=== PATIENT | female | born 1990 | race African-American/Black ===

== ENCOUNTER 2023-06-09 12:56 | Emergency (ER) | payer OTHER, SELFPAY ==
--- NOTE | ~2023-06-09 | CT_ITS ---
EXAMINATION: CT SOFT TISSUE NECK WITH CONTRAST CLINICAL INFORMATION: Left-sided submandibular swelling. COMPARISON: None. TECHNIQUE: Following the administration of 60 mL of Omnipaque 350 intravenous contrast, helical imaging was performed in the axial plane with generation of coronal and sagittal reformatted images. This CT examination was performed using dose optimization techniques as appropriate, variously including the following: *Automated exposure control. *Adjustment of mA and/or kV according to patient size (this includes techniques or standardized protocols for targeted exams where dose is matched to indication/reason for exam; i.e. extremities or head). *Use of iterative reconstruction technique. DLP: 639 mGy-cm. FINDINGS: There is a carious left mandibular second molar with periapical lucency and dehiscence of the buccal cortex of the left maxillary alveolus. Adjacent soft tissue swelling of the inferior gingivobuccal soft tissues containing a rim-enhancing hypodense collection, compatible with phlegmon/developing abscess measuring 2.7 x 1.3 x 2.4 cm. Mild stranding of the submental and left submandibular subcutaneous fat which may reflect cellulitis. There are also several maxillary dental caries and periapical lucencies. Nasopharynx/skull base: The fat planes of the skull base and soft tissues of the nasopharynx are unremarkable. The paranasal sinuses and mastoid air cells are well aerated. The temporomandibular joints are normal. Suprahyoid neck: The oropharynx, oral cavity, and bilateral salivary gland tissues are unremarkable. Infrahyoid neck: The hypopharynx and larynx are unremarkable. No aerodigestive tract mass. Thyroid: The thyroid gland is normal. Lymph nodes: There is no cervical chain lymphadenopathy. Lung apices: The partially visualized lung apices are clear. Vascular structures: No hemodynamically significant stenosis, dissection, or occlusion. Osseous structures: The osseous structures are intact without suspicious focal lesion. Other: The imaged portions of the brain parenchyma are unremarkable. CT/CT soft tissue neck w IV con IMPRESSION: There is evidence of odontogenic infection with dehiscence of the buccal cortex of the left mandible associated with a carious second molar. Soft tissue swelling of the adjacent gingivobuccal soft tissues containing a peripherally enhancing hypodense collection measuring up to 2.7 cm, compatible with phlegmon/developing abscess.
[2023-06-09 13:32] VITALS: BP 134/82; PULSE 104; RESP 20; TEMP 37.2; O2SAT 99; BMI 24.2
--- NOTE | 2023-06-09 13:32 | ED_ITS ---
HPI - General Adult General Chief complaint: Dental/Oral Stated complaint: Side of face hurts Time Seen by Provider: 06/09/23 13:51 Related Data Allergies Allergy/AdvReac Type Severity Reaction Status Date / Time amoxicillin Allergy Unknown Verified 06/09/23 13:32 [facility] Social History Social History Alcohol intake: never Smoked in Last 30 Days: No Use of substances other than those prescribed or required for medical reasons: Yes Substance Use Type: Marijuana Substance Use Frequency: Chronic Longstanding Advance Directives: No Advance Directives Information Provided: No Physical Exam ED Vital Signs: Vital Signs - 24 hr 06/09/23 13:32 06/09/23 14:02 06/09/23 16:00 Temperature 99.0 F Pulse Rate 104 H 85 76 Respiratory Rate 20 18 Blood Pressure 134/82 124/89 134/88 Pulse Oximetry 99 98 100 Oxygen Delivery Method Room Air Room Air Room Air 06/09/23 19:13 Temperature 98.3 F Pulse Rate 82 Respiratory Rate 18 Blood Pressure 123/77 Pulse Oximetry 99 Oxygen Delivery Method Room Air BMI result Body Mass Index 24.2 Course Course Course Narrative: This is an RME: Additional HPI, ROS, PE not included below will be deferred to primary provider. Patient is a 32-year-old female presenting to the emergency department with complaint of left sided facial swelling for 2 days, this morning she had difficulty swallowing. States pain is so severe it is making her nauseated and causing her to vomit. States is September she had similar symptoms and she was told she had a blocked salivary gland. Also reports pain radiating to left chest and breast. Went to [facility] urgent care this morning and states she was told to come here. Took morphine this morning which was prescribed to her in September. Patient with visible swelling to left side of face/jaw, unable to fully assess in triage related to pain level. Denies any pain inside her mouth. No difficulty breathing, patient is managing secretions. Medications Administered Discontinued Medications Generic Name Dose Route Start Last Admin Trade Name Freq PRN Reason Stop Dose Admin Dexamethasone Sodium Phosphate 10 mg 06/09/23 14:01 06/09/23 14:13 Dexamethasone Sod Phosphate 10 Mg/Ml Vial IVPUSH 06/09/23 14:02 10 mg ONCE ONE Administration Hydromorphone HCl 0.5 mg 06/09/23 16:32 06/09/23 16:38 Hydromorphone Hcl 0.5 Mg/0.5 Ml Syringe IVPUSH 06/09/23 16:33 0.5 mg ONCE ONE Administration Protocol Sodium Chloride 1,000 mls @ 999 mls/hr 06/09/23 14:00 06/09/23 15:48 Ns IV 06/09/23 15:00 Infused .Q1H1M KERON Infusion Sodium Chloride 1,000 mls @ 999 mls/hr 06/09/23 14:00 06/09/23 15:49 Ns IV 06/09/23 15:00 Infused .Q1H1M KERON Infusion Clindamycin Phosphate 600 mg in 50 mls @ 100 mls/hr 06/09/23 14:01 06/09/23 1 5:49 Cleocin IV 06/09/23 14:30 Infused ONCE ONE Infusion Iohexol 100 ml 06/09/23 15:59 06/09/23 16:00 Iohexol 350 Mg/Ml 100 Ml Infus..Btl IV 06/09/23 16:00 60 ml ONCE ONE Administration Lorazepam 1 mg 06/09/23 18:50 06/09/23 19:01 Lorazepam 2 Mg/Ml Vial IVPUSH 06/09/23 18:51 1 mg ONCE ONE Administration Medical Decision Making Lab Data 06/09/23 14:00 06/09/23 14:00 Labs: Lab Results 06/09/23 06/09/23 06/09/23 Range/Units 14:00 14:00 14:00 WBC 7.4 (4.8-10.8) X10*3/uL RBC 4.17 L (4.20-5.50) X10*6/uL Hgb 12.4 (12.0-16.0) g/dl Hct 38.1 (37.0-47.0) % MCV 91.4 (80.0-98.0) fL MCH 29.7 (27.0-33.0) pg MCHC 32.5 (31.0-35.0) g/dl RDW 12.9 (11.0-16.0) % Plt Count 155 L (160-400) X10*3/uL MPV 9.9 (9.4-12.3) fL Immature Gran % (Auto) 0.1 (0.0-0.4) % Neut % (Auto) 66.2 (45-73) % Lymph % (Auto) 25.6 (20-40) % King % (Auto) 7.3 (2-11) % Eos % (Auto) 0.5 (0-4) % Baso % (Auto) 0.3 (0-2) % Lymph # (Auto) 1.9 (1.2-4.9) X10*3/uL [place] # (Auto) 0.5 (0.1-1.2) X10*3/uL Eos # (Auto) 0.0 (0.0-0.4) X10*3/uL Baso # (Auto) 0.0 (0.0-0.2) X10*3/uL Abs Immat Gran (auto) 0.01 (0.00-0.03) X10*3/uL Absolute Neuts (auto) 4.9 (2.0-8.3) x10*3/uL Absolute Nucleated RBC 0.000 (0.0-0.012) X10*3/uL Nucleated RBC % (auto) 0.0 (0.0-0.2) /100WBC Sodium 139 (135-145) mmol/L Potassium 3.9 (3.3-5.1) mmol/L Chloride 107 (96-108) mmol/L Carbon Dioxide 23 (22-29) mmol/L Anion Gap 13 (12-20) BUN 7 L (9-16) mg/dL Creatinine 0.75 (0.5-1.4) mg/dL Estim Creat Clear Calc 98.9 Estimated GFR > 60 Random Glucose 77 (60-115) mg/dL Lactic Acid (0.5-2.0) mmol/L Calcium 9.9 (8.4-10.2) mg/dL Total Bilirubin 0.5 (0.0-1.0) mg/dL AST 20 (5-31) U/L ALT 23 (0-31) U/L Alkaline Phosphatase 64 (39-117) U/L Troponin I High Sens < 2.7 (<3.5-17.0) ng/L Total Protein 7.7 (6.5-8.0) g/dL Albumin 4.3 (3.5-5.0) g/dL Beta HCG, Quant mIU/mL 06/09/23 06/09/23 Range/Units 14:00 14:00 WBC (4.8-10.8) X10*3/uL RBC (4.20-5.50) X10*6/uL Hgb (12.0-16.0) g/dl Hct (37.0-47.0) % MCV (80.0-98.0) fL MCH (27.0-33.0) pg MCHC (31.0-35.0) g/dl RDW (11.0-16.0) % Plt Count (160-400) X10*3/uL MPV (9.4-12.3) fL Immature Gran % (Auto) (0.0-0.4) % Neut % (Auto) (45-73) % Lymph % (Auto) (20-40) % King % (Auto) (2-11) % Eos % (Auto) (0-4) % Baso % (Auto) (0-2) % Lymph # (Auto) (1.2-4.9) X10*3/uL King # (Auto) (0.1-1.2) X10*3/uL Eos # (Auto) (0.0-0.4) X10*3/uL Baso # (Auto) (0.0-0.2) X10*3/uL Abs Immat Gran (auto) (0.00-0.03) X10*3/uL Absolute Neuts (auto) (2.0-8.3) x10*3/uL Absolute Nucleated RBC (0.0-0.012) X10*3/uL Nucleated RBC % (auto) (0.0-0.2) /100WBC Sodium (135-145) mmol/L Potassium (3.3-5.1) mmol/L Chloride (96-108) mmol/L Carbon Dioxide (22-29) mmol/L Anion Gap (12-20) BUN (9-16) mg/dL Creatinine (0.5-1.4) mg/dL Estim Creat Clear Calc Estimated GFR Random Glucose (60-115) mg/dL Lactic Acid 1.0 (0.5-2.0) mmol/L Calcium (8.4-10.2) mg/dL Total Bilirubin (0.0-1.0) mg/dL AST (5-31) U/L ALT (0-31) U/L Alkaline Phosphatase (39-117) U/L Troponin I High Sens (<3.5-17.0) ng/L Total Protein (6.5-8.0) g/dL Albumin (3.5-5.0) g/dL Beta HCG, Quant < 2 mIU/mL Discharge Plan Discharge Clinical Impression: Dental abscess Patient Disposition: [facility] Transfer Details: Transferred to [facility]
--- NOTE | 2023-06-09 13:35 | ECG_ITS ---
Test Reason : chest pressure Blood Pressure : / mmHG Vent. Rate : 101 BPM Atrial Rate : 101 BPM P-R Int : 146 ms QRS Dur : 082 ms QT Int : 318 ms P-R-T Axes : 072 074 057 degrees QTc Int : 412 ms Sinus tachycardia Otherwise normal ECG No previous ECGs available Referred By: Amanda Triana Electronically Signed By:LEONOR STANTON MD
[2023-06-09 14:02] VITALS: BP 124/89; PULSE 85; RESP 18; O2SAT 98
--- NOTE | 2023-06-09 14:05 | ED_ITS ---
HPI - Dental/Oral General Chief complaint: Dental/Oral Stated complaint: Side of face hurts Time Seen by Provider: 06/09/23 13:51 History of Present Illness HPI Narrative: Patient is a 32-year-old female presents today with having left facial pain swelling. 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 Presented with similar pain. Patient denies any pain on chewing. There is no fever no chills. The swelling getting worse over last 2 days. No difficulty swallowing. Voices but the same. No difficulty breathing. Patient is from home. Related Data Allergies Allergy/AdvReac Type Severity Reaction Status Date / Time amoxicillin Allergy Unknown Verified 06/09/23 13:32 Review of Systems Review of Systems: Positive swelling to the left lower jaw Yes all other systems are reviewed and are negative [facility] Past Medical History Attestation statement: The following information was validated with the patient. Social History Social History Alcohol intake: never Smoked in Last 30 Days: No Use of substances other than those prescribed or required for medical reasons: Yes Substance Use Type: Marijuana Substance Use Frequency: Chronic Longstanding Advance Directives: No Advance Directives Information Provided: No Physical Exam Vital Signs: Vital Signs: Last Vital Signs Temp 99.0 F 06/09/23 13:32 Pulse 76 06/09/23 16:00 Resp 18 06/09/23 14:02 BP 134/88 06/09/23 16:00 Pulse Ox 100 06/09/23 16:00 O2 Del Method Room Air 06/09/23 16:00 BMI result Body Mass Index 24.2 Appearance: Alert. Oriented X3. No acute distress. Eyes: Pupils equal, round and reactive to light. ENT: Pharynx normal. Positive swelling to the left lower jaw area. There is no tenderness of palpation on the floor the mouth. There is no tenderness on palpation of the teeth. There is no gross abscess palpable. There is clear swelling over the cheeks on the left side near the mandible. Posterior pharynx is normal. The tonsils are normal in size uvula is midline Neck: Normal inspection. Neck supple. No lymph nodes noted. No crepitus CVS: Normal heart rate and rhythm. Pulses normal. Normal S1 and S2 Respiratory: No respiratory distress. Breath sounds normal. No Wheezing. No rales Abdomen: Soft and nontender. No rigidity. No distention. good BS x4 Skin: Skin warm and dry. Normal skin color. Normal skin turgor. Extremities: No lower extremity edema. Neurovascular intact to all extremities. No Lacerations. No Rash Neuro: Oriented X 3. No motor deficit. No sensory deficit. Moving all extermities. No slurred speech Medications Administered Discontinued Medications Generic Name Dose Route Start Last Admin Trade Name Freq PRN Reason Stop Dose Admin Dexamethasone Sodium Phosphate 10 mg 06/09/23 14:01 06/09/23 14:13 Dexamethasone Sod Phosphate 10 Mg/Ml Vial IVPUSH 06/09/23 14:02 10 mg ONCE ONE Administration Hydromorphone HCl 0.5 mg 06/09/23 16:32 06/09/23 16:38 Hydromorphone Hcl 0.5 Mg/0.5 Ml Syringe IVPUSH 06/09/23 16:33 0.5 mg ONCE ONE Administration Protocol Sodium Chloride 1,000 mls @ 999 mls/hr 06/09/23 14:00 06/09/23 15:48 Ns IV 06/09/23 15:00 Infused .Q1H1M KERON Infusion Sodium Chloride 1,000 mls @ 999 mls/hr 06/09/23 14:00 06/09/23 15:49 Ns IV 06/09/23 15:00 Infused .Q1H1M KERON Infusion Clindamycin Phosphate 600 mg in 50 mls @ 100 mls/hr 06/09/23 14:01 06/09/23 15:49 Cleocin IV 06/09/23 14:30 Infused ONCE ONE Infusion Iohexol 100 ml 06/09/23 15:59 06/09/23 16:00 Iohexol 350 Mg/Ml 100 Ml Infus..Btl IV 06/09/23 16:00 60 ml ONCE ONE Administration Medical Decision Making Medical Decision Making MDM Narrative: 32 years old presents today with left-sided facial swelling. CT scan positive for a large dental abscess approximately 3 cm in size causing facial swelling. There is no evidence for look with angina. Posterior pharynx appears to be normal. Patient has no difficulty breathing. No difficulty with voice. No difficulty with swallowing. Because the extensive nature of the swelling. Lack of follow-up. Patient's case contacted with [facility] for hull sfer. They do not have the necessary capacity. Patient's case also discussed with you mass, no capacity to take care patient. Patient's case discussed with [facility]. Will transfer patient to [place] ED for OM after possible drainage. Risk and benefits explained to patient for the transfer. Patient accepts. Differential Diagnosis Differential Diagnoses: The differential diagnosis associated with the presentation includes Dental abscess, [place] angina, salivary gland infection Consult Healthcare Provider Management of the patient was discussed with: [facility], Lab Data MDM Lab Attestation statement: I reviewed the patient's lab results. 06/09/23 14:00 06/09/23 14:00 Labs: Lab Results 06/09/23 06/09/23 06/09/23 Range/Units 14:00 14:00 14:00 WBC 7.4 (4.8-10.8) X10*3/uL RBC 4.17 L (4.20-5.50) X10*6/uL Hgb 12.4 (12.0-16.0) g/dl Hct 38.1 (37.0-47.0) % MCV 91.4 (80.0-98.0) fL MCH 29.7 (27.0-33.0) pg MCHC 32.5 (31.0-35.0) g/dl RDW 12.9 (11.0-16.0) % Plt Count 155 L (160-400) X10*3/uL MPV 9.9 (9.4-12.3) fL Immature Gran % (Auto) 0.1 (0.0-0.4) % Neut % (Auto) 66.2 (45-73) % Lymph % (Auto) 25.6 (20-40) % [place] % (Auto) 7.3 (2-11) % Eos % (Auto) 0.5 (0-4) % Baso % (Auto) 0.3 (0-2) % Lymph # (Auto) 1.9 (1.2-4.9) X10*3/uL [place] # (Auto) 0.5 (0.1-1.2) X10*3/uL Eos # (Auto) 0.0 (0.0-0.4) X10*3/uL Baso # (Auto) 0.0 (0.0-0.2) X10*3/uL Abs Immat Gran (auto) 0.01 (0.00-0.03) X10*3/uL Absolute Neuts (auto) 4.9 (2.0-8.3) x10*3/uL Absolute Nucleated RBC 0.000 (0.0-0.012) X10*3/uL Nucleated RBC % (auto) 0.0 (0.0-0.2) /100WBC Sodium 139 (135-145) mmol/L Potassium 3.9 (3.3-5.1) mmol/L Chloride 107 (96-108) mmol/L Carbon Dioxide 23 (22-29) mmol/L Anion Gap 13 (12-20) BUN 7 L (9-16) mg/dL Creatinine 0.75 (0.5-1.4) mg/dL Estim Creat Clear Calc 98.9 Estimated GFR > 60 Random Glucose 77 (60-115) mg/dL Lactic Acid (0.5-2.0) mmol/L Calcium 9.9 (8.4-10.2) mg/dL Total Bilirubin 0.5 (0.0-1.0) mg/dL AST 20 (5-31) U/L ALT 23 (0-31) U/L Alkaline Phosphatase 64 (39-117) U/L Troponin I High Sens < 2.7 (<3.5-17.0) ng/L Total Protein 7.7 (6.5-8.0) g/dL Albumin 4.3 (3.5-5.0) g/dL Beta HCG, Quant mIU/mL 06/09/23 06/09/23 Range/Units 14:00 14:00 WBC (4.8-10.8) X10*3/uL RBC (4.20-5.50) X10*6/uL Hgb (12.0-16.0) g/dl Hct (37.0-47.0) % MCV (80.0-98.0) fL MCH (27.0-33.0) pg MCHC (31.0-35.0) g/dl RDW (11.0-16.0) % Plt Count (160-400) X10*3/uL MPV (9.4-12.3) fL Immature Gran % (Auto) (0.0-0.4) % Neut % (Auto) (45-73) % Lymph % (Auto) (20-40) % [place] % (Auto) (2-11) % Eos % (Auto) (0-4) % Baso % (Auto) (0-2) % Lymph # (Auto) (1.2-4.9) X10*3/uL [place] # (Auto) (0.1-1.2) X10*3/uL Eos # (Auto) (0.0-0.4) X10*3/uL Baso # (Auto) (0.0-0.2) X10*3/uL Abs Immat Gran (auto) (0.00-0.03) X10*3/uL Absolute Neuts (auto) (2.0-8.3) x10*3/uL Absolute Nucleated RBC (0.0-0.012) X10*3/uL Nucleated RBC % (auto) (0.0-0.2) /100WBC Sodium (135-145) mmol/L Potassium (3.3-5.1) mmol/L Chloride (96-108) mmol/L Carbon Dioxide (22-29) mmol/L Anion Gap (12-20) BUN (9-16) mg/dL Creatinine (0.5-1.4) mg/dL Estim Creat Clear Calc Estimated GFR Random Glucose (60-115) mg/dL Lactic Acid 1.0 (0.5-2.0) mmol/L Calcium (8.4-10.2) mg/dL Total Bilirubin (0.0-1.0) mg/dL AST (5-31) U/L ALT (0-31) U/L Alkaline Phosphatase (39-117) U/L Troponin I High Sens (<3.5-17.0) ng/L Total Protein (6.5-8.0) g/dL Albumin (3.5-5.0) g/dL Beta HCG, Quant < 2 mIU/mL Radiology Impression Discussion of test interpretation with radiology: I have reviewed the radiologist's reading. Discharge Plan Discharge Clinical Impression: Dental abscess Patient Disposition: [facility] Transfer Details: Transferred to [facility]
[2023-06-09 14:06] LABS: MANUAL DIFF FLAG NO
[2023-06-09 14:11] LABS: Basophils Percent Auto 0.3 % (0-2); Eosinophils Percent Auto 0.5 % (0-4); Hematocrit 38.1 % (37.0-47.0); Hemoglobin 12.4 g/dl (12.0-16.0); Imm Gran Abs Auto 0.01 X10*3/uL (0.00-0.03); Imm Gran Pct Auto 0.1 % (0.0-0.4); Lymphocytes Absolute Auto 1.9 X10*3/uL (1.2-4.9); Lymphocytes Percent Auto 25.6 % (20-40); Mean Corpuscular HGB Conc 32.5 g/dl (31.0-35.0); Mean Corpuscular Hemoglobin 29.7 pg (27.0-33.0); Mean Corpuscular Volume 91.4 fL (80.0-98.0); Mean Platelet Volume 9.9 fL (9.4-12.3); Monocytes Absolute Auto 0.5 X10*3/uL (0.1-1.2); Monocytes Percent Auto 7.3 % (2-11); Neutrophils Absolute Auto 4.9 x10*3/uL (2.0-8.3); Neutrophils Percent Auto 66.2 % (45-73); Platelet Count 155 X10*3/uL (160-400); Red Blood Count 4.17 X10*6/uL (4.20-5.50); Red Cell Distribution Width 12.9 % (11.0-16.0); White Blood Count 7.4 X10*3/uL (4.8-10.8)
[2023-06-09] MEDS: dexAMETHasone sod phosphate 10 MG/ML VIAL IVPUSH (14:13)
[2023-06-09] MEDS: 0.9 % Sodium Chloride 1,000 ML 999 ML IV ×2 (14:15)
[2023-06-09] MEDS: Clindamycin Phosphate/D5W 600 MG/50 ML PIGGYBACK 100 MG IV (14:20)
--- NOTE | 2023-06-09 14:23 | PC.NURSE ---
medication administered per provider order.
[2023-06-09 14:25] LABS: Alanine Aminotransferase 23 U/L (0-31); Albumin Level 4.3 g/dL (3.5-5.0); Alkaline Phosphatase 64 U/L (39-117); Anion Gap 13 (12-20); Aspartate Amino Transferase 20 U/L (5-31); Bilirubin Total 0.5 mg/dL (0.0-1.0); Blood Urea Nitrogen 7 mg/dL (9-16); Calcium 9.9 mg/dL (8.4-10.2); Carbon Dioxide 23 mmol/L (22-29); Chloride 107 mmol/L (96-108); Creatinine Clr Calc Pharmacy 98.9; Estimated Glomerular Filt Rate > 60; Glucose Random 77 mg/dL (60-115); Potassium 3.9 mmol/L (3.3-5.1); Sodium 139 mmol/L (135-145); Total Protein 7.7 g/dL (6.5-8.0)
[2023-06-09 14:37] LABS: HCG Quantitative < 2 mIU/mL; Troponin-I High Sensitivity < 2.7 ng/L (<3.5-17.0)
--- NOTE | 2023-06-09 15:37 | MHC.EDTECH ---
Brought patient ice pack and gave a box of tissue.
--- NOTE | 2023-06-09 15:46 | PC.NURSE ---
pt sent to CT, prior to leaving for CT, pt stated that she has a 9/10 pain level and that the pain is radiating towards her ears and the pain gets worse with movement
[2023-06-09 16:00] VITALS: BP 134/88; PULSE 76; O2SAT 100
[2023-06-09] MEDS: iohexoL 350 MG/ML 100 ML INFUS..BTL IV (16:00)
[2023-06-09] MEDS: HYDROmorphone HCl 0.5 MG/0.5 ML SYRINGE IVPUSH (16:38)
--- NOTE | 2023-06-09 17:22 | PC.NURSE ---
pt's pain level reassessed stating her pain is a 7/10.
[2023-06-09] MEDS: LORazepam 2 MG/ML VIAL 1 MG IVPUSH (19:01)
[2023-06-09 19:13] VITALS: BP 123/77; PULSE 82; RESP 18; TEMP 36.8; O2SAT 99
== END 2023-06-10 05:01 | disposition short-term general hospital (02) ==
PROVIDERS: Registered Nurse Emergency; Emergency Provider Emergency Medicine Emergency Medical Services; PCP Nurse Practitioner Family
DX: K04.7 Periapical abscess without sinus (principal); R22.0 Localized swelling, mass and lump, head; F12.90 Cannabis use, unspecified, uncomplicated
CPT/HCPCS: 36415; 70491; 80053; 83605; 84484; 84702; 85025; 87040; 93005; 96361; 96374; 96375; 99285; J1100; J1170; J2060; Q9967

== ENCOUNTER → 2023-06-09 13:35 | Outpatient (BNV) | payer OTHER, SELFPAY | PROVIDERS: Emergency Provider Emergency Medicine Emergency Medical Services; PCP Nurse Practitioner Family; Visit Provider Internal Medicine Cardiovascular Disease | DX: R00.0 Tachycardia, unspecified (principal) | CPT/HCPCS: 93010 ==